=== PATIENT | female | born 2000 | race Caucasian/White ===

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

== ENCOUNTER 2020-02-11 15:33 | Emergency (ER) | payer MEDICAID ==
[~2020-02-11] VITALS: Ht 160 cm; Wt 50.0 kg
[~2020-02-11 15:33] MED LIST: LOPE2CAP PO; ONDA8TAB6 PO; PANT-47 PO
[2020-02-11 15:44] VITALS: BP 134/78
[2020-02-11 16:03] LABS: URINE HCG NEGATIVE (NEG)
[2020-02-11 16:07] LABS: CLARITY,URINE CLOUDY (Clear); GLUCOSE, URINE NEGATIVE (Neg); KETONES,URINE TRACE mg/dl (Neg); LEUKOCYTE ESTERASE ,URINE SMALL (Neg); NITRITES, URINE POSITIVE (Neg); OCCULT BLOOD,URINE LARGE (Neg); PROTEIN,URINE 30 mg/dl (Neg)
[2020-02-11 16:14] LABS: COLOR,URINE DARK YELLOW (Yellow); UA COLLECTION TYPE CLN CATCH MIDSTREAM
[2020-02-11 16:22] LABS: MUCUS STRANDS MODERATE /LPF (Neg)
[2020-02-11 16:23] LABS: RBC,URINE TNTC /HPF (0-2)
[2020-02-11 16:24] LABS: BACTERIA,URINE 2+ /HPF (Neg)
[2020-02-11] MEDS ORDERED: CEPH-572 PO (16:32)
[2020-02-11 16:37] LABS: SQUAMOUS EPITHELIAL CELL,UR MODERATE /LPF (FEW)
[2020-02-11 16:44] LABS: URIC ACID CRYSTALS 1+ /HPF (NEGATIVE)
== END 2020-02-11 16:47 | disposition home or self-care (01) ==
LOC: ER 15:34
DX: N39.0 Urinary tract infection, site not specified (principal); Z88.1 Allergy status to other antibiotic agents; Z79.2 Long term (current) use of antibiotics; Z79.899 Other long term (current) drug therapy
CPT/HCPCS: 81001; 81025; 87077; 87088; 87186; 99283

== ENCOUNTER 2020-09-20 13:26 | Emergency (ER) | payer MEDICAID ==
[~2020-09-20] VITALS: Ht 160 cm; Wt 70.0 kg
[2020-09-20 13:33] VITALS: BP 116/68
[2020-09-20 13:50] LABS: CLARITY,URINE CLOUDY (Clear); COLOR,URINE YELLOW (Yellow); GLUCOSE, URINE NEGATIVE (Neg); KETONES,URINE 15 mg/dl (Neg); LEUKOCYTE ESTERASE ,URINE LARGE (Neg); NITRITES, URINE POSITIVE (Neg); OCCULT BLOOD,URINE TRACE-INTACT (Neg); PROTEIN,URINE 30 mg/dl (Neg)
[2020-09-20 13:58] LABS: UA COLLECTION TYPE CLN CATCH MIDSTREAM
[2020-09-20 14:04] LABS: SQUAMOUS EPITHELIAL CELL,UR MODERATE /LPF (FEW); WBC CLUMPS,URINE FEW /HPF (NEGATIVE)
[2020-09-20 14:05] LABS: WBC,URINE TNTC /HPF (0-4)
[2020-09-20 14:07] LABS: BACTERIA,URINE 3+ /HPF (Neg); RBC,URINE 0-2 /HPF (0-2)
[2020-09-20] MEDS ORDERED: normal saline 1000ML IV soln IV ONE (15:30)
[2020-09-20 16:05] LABS: BASOPHILS % (AUTO) 0.1 % (0-1); EOSINOPHILS % (AUTO) 0 % (0-6); HEMATOCRIT 32.4 % (35.0-45.0); HEMOGLOBIN 11.2 g/dl (12.0-16.0); LYMPHOCYTES % (AUTO) 9.9 % (21-51); MEAN CORPUSCULAR HEMOGLOBIN 30.3 PG (27.0-31.0); MEAN CORPUSCULAR HGB CONC 34.4 g/dL (33.0-36.5); MEAN PLATELET VOLUME 8.1 FL (7.4-10.4); MONOCYTES # (AUTO) 1.6 X10'3 (0-0.9); MONOCYTES % (AUTO) 8.3 % (2-12); NEUTROPHILS # (AUTO) 16.1 X10'3 (1.8-7.7); NEUTROPHILS % (AUTO) 81.7 % (42-75); PLATELET COUNT 205 X10'3 (140-440); RED BLOOD COUNT 3.68 X10'6 (4.20-5.60); RED CELL DISTRIBUTION WIDTH 14.4 % (11.5-14.5); WHITE BLOOD COUNT 19.8 X10'3 (4.5-11.0)
[2020-09-20 16:12] LABS: ALANINE AMINOTRANSFERASE 19 U/L (12-78); ALBUMIN 3.1 G/DL (3.4-5.0); ALBUMIN/GLOBULIN RATIO 0.7 (1.1-1.5); ALKALINE PHOSPHATASE 78 IU/L (20-180); ANION GAP 11 (8-16); ASPARTATE AMINO TRANSFERASE 10 U/L (10-37); BILIRUBIN,TOTAL 0.3 MG/DL (0.1-1.0); BLOOD UREA NITROGEN 5 MG/DL (7-18); BUN/CREATININE RATIO 11.4 (6.6-38.0); CALCIUM 8.5 MG/DL (8.5-10.1); CHLORIDE 99 MMOL/L (99-107); CREATININE 0.44 MG/DL (0.40-0.90); GLUCOSE 80 MG/DL (70-104); POTASSIUM 3.5 MMOL/L (3.5-5.1); SODIUM 131 MMOL/L (135-145); TOTAL CARBON DIOXIDE 21.4 MMOL/L (24-32); TOTAL PROTEIN 7.4 G/DL (6.4-8.2); eGFR > 90 ML/MIN
[2020-09-20 16:35] LABS: MAGNESIUM 1.9 MG/DL (1.5-2.4)
[2020-09-20 16:39] LABS: BETA HCG,QUANTITATIVE 25964 mIU/ml
[2020-09-20] MEDS ORDERED: CefTRIAXone 2gm/D5W 50ml BAG 50 ML IV ONE (17:00)
[2020-09-20] MEDS ORDERED: acetaminophen 325mg tablet PO ONE (17:10)
[2020-09-20] MEDS ORDERED: CEPH-585 PO (17:56)
== END 2020-09-20 18:10 | disposition home or self-care (01) ==
LOC: ER 13:26
DX: O23.32 Infections of other parts of urinary tract in pregnancy, second trimester (principal); N10 Acute pyelonephritis; Z3A.15 15 weeks gestation of pregnancy; Z88.1 Allergy status to other antibiotic agents; Z79.899 Other long term (current) drug therapy
CPT/HCPCS: 36415; 80053; 81001; 83605; 83735; 84145; 84702; 85025; 87040; 87088; 87186; 96365; 99284; J0696; J7030; 87077

== ENCOUNTER 2023-10-24 20:33 | Emergency (ER) | payer MEDICAID ==
[~2023-10-24] VITALS: Ht 162.6 cm; Wt 110.2 kg
[2023-10-24 20:38] VITALS: BP 135/83; PULSE 118; RESP 14; TEMP 97.5; O2SAT 95
== END 2023-10-24 21:07 | disposition home or self-care (01) ==
LOC: ER 20:33
DX: Z13.89 Encounter for screening for other disorder (principal); M79.601 Pain in right arm; Z88.1 Allergy status to other antibiotic agents; Z79.899 Other long term (current) drug therapy
CPT/HCPCS: 99281